=== PATIENT | female | born 1940 | race Caucasian/White ===

== ENCOUNTER → 2016-09-22 | Outpatient (CLI) | payer MEDICARE ==
--- NOTE | 2016-09-22 13:50 | MM ---
Reason for exam: follow-up at short interval from prior study. Last mammogram was performed 8 months ago. History: Patient is postmenopausal and has history of other cancer at age 74. Benign MG stereo VAD BX addl LT of the left breast, February 15, 2016. Benign MG stereo VAD BX RT of the right breast, February 15, 2016. Benign US right core biopsy of the right breast, December 18, 2006. Benign stereotactic core biopsy of the left breast, October 13, 2002. Core biopsy of the left breast. Excisional biopsy of the left breast. Excisional biopsy of the right breast. Took estrogen for 20 years beginning at age 26. Took progesterone for 20 years beginning at age 26. Physical Findings: Nurse did not find any significant physical abnormalities on exam. MG 3D Diag Mammo W/Cad SOM Bilateral CC and MLO view(s) were taken. Prior study comparison: January 26, 2016, bilateral MG 3d work up w/cad SOM. January 21, 2016, bilateral MG 3d screening mammo w/cad. The breast tissue is heterogeneously dense. This may lower the sensitivity of mammography. There is no discrete abnormality including area of concern. No significant new findings when compared with previous films. These results were verbally communicated with the patient and result sheet given to the patient on 09/22/16. ASSESSMENT: Benign, BI-RAD 2 RECOMMENDATION: Follow-up diagnostic mammogram of both breasts in 1 year.
== END | disposition home or self-care (01) ==
LOC: RADMAMWWP 12:56
PROVIDERS: ATTEND Family Medicine
DX: R92.8 Other abnormal and inconclusive findings on diagnostic imaging of breast (principal)
CPT/HCPCS: G0204; G0279

== ENCOUNTER → 2017-01-05 | Outpatient (CLI) | payer MEDICARE ==
--- NOTE | 2017-01-05 11:18 | FL ---
EXAMINATION: Upper GI with small bowel follow through DATE: 01/05/2017 CLINICAL INDICATION: 76-year-old female history of lymphoma treated in 2014. The patient had an outsi de PET/CT that showed a nonmetabolic mass at the ileocecal region, suspected stool ball. Referred for further evaluation to exclude a mass here. COMPARISON: None Total Fluoroscopy Time: 1 minute 55 seconds Total images: 47 FINDINGS: The esophagus has a normal course and caliber. No suspicious filling defect or fixed narrowing. However, there is prolonged pooling of contrast within the esophagus with blunted secondary peristals is and moderate tertiary peristaltic contractions. No hiatal hernia is identified. There is no gastroesophageal reflux identified. The stomach and duodenum are free of any persistent filling defect and demonstrate a normal mucosal p attern. Following administration of barium, serial films were carried out to 0.5 hours. Barium is seen to marie ch the colon. Loops of jejunum and ileum are compressed and examined under fluoroscopy. The small bow el loops have a normal-caliber. Mucosal pattern is within normal limits. Stool is present within the visualized colon. No suspicious findings to suggest a mass with particular attention to the ileocecal region. No intrinsic or extrinsic process is suspected. IMPRESSION: 1. Moderate esophageal dysmotility/early presbyesophagus. 2. Small bowel transit time is at the lower end of the normal range (30 minutes). 3. There is stool in the cecum. Within this limitation, there is no evident mass in the small bowel o r ileocecal region.
== END ==
LOC: RADFLMAIN 08:49
PROVIDERS: ATTEND Family Medicine
DX: K22.4 Dyskinesia of esophagus (principal)
CPT/HCPCS: 74245

== ENCOUNTER 2017-06-14 08:31 | Day surgery (SDC) | payer MEDICARE ==
[2017-06-12 10:03] VITALS: BMI 28.2
[~2017-06-14 08:31] MED LIST: LACTATED RINGERS 1,000 ML IV SCH; LIDOCAINE 1% 20 ML VIAL (10MG/ML) FOR IV START INTRADERMA PRN
[2017-06-14 08:54] VITALS: RESP 16; TEMP 97.9
[2017-06-14] MEDS ORDERED: LIDOCAINE 1% 20 ML VIAL (10MG/ML) FOR IV START INTRADERMA ONE (09:06)
[2017-06-14] MEDS ORDERED: PROPOFOL 10 MG/ML 20 ML VIAL IV ONE (09:54)
[2017-06-14] MEDS ORDERED: LIDOCAINE 1% INJ 10MG/ML (20 ML MDV) ONE (09:54)
[2017-06-14] MEDS ORDERED: fentaNYL (PF) 50 MCG/ML 2 ML AMP ONE (09:54)
--- NOTE | 2017-06-14 10:27 | P.PCN ---
Date of Procedure: 06/14/17 Procedure(s) Performed: Procedure: Esophagogastroduodenoscopy and biopsy. Preoperative diagnosis: Dysphagia and abnormal upper GI. Postoperative diagnosis: 1. Very small sliding hiatal hernia with no obvious esophagitis or complicated reflux disease. 2. Minimal antral gastritis. 3. Multiple biopsies obtained from the duodenum, antrum and esophagus. Preparation and sedation: Was provided by anesthesia. Brief clinical history: The patient is a 76-year-old female who is scheduled for this evaluation for the above reasons. The patient always considered herself a slow eater. An upper GI and small bowel follow-through performed in December 2016 in follow-up on an abnormality seen on her computed tomography scan in the small bowel/cecum showed moderate esophageal dysmotility/early presbyesophagus. The patient has no alarm symptoms including any weight loss or anemia. Procedure: With the patient on her left lateral decubitus position and after informed consent and adequate sedation, I passed the Olympus-GIF 160 video upper endoscope through the cricopharyngeus down the esophagus. GE junction was around 40-41 cm from the incisors and there was a very small sliding hiatal hernia. The esophagus did not show any obvious erosions, ulcers, strictures or Greenberg's esophagus. The endoscope was then passed into the stomach which was insufflated with air and inspected in detail including the retroflex view in the cardia. There was minimal mottling and erythema in the antrum but no ulcers or erosions. Pyloric channel, duodenal bulb, post bulbar area and descending duodenum appeared within normal limits. Because of her symptoms, I obtained biopsies from the duodenum, antrum and esophagus then the endoscope was withdrawn. The patient tolerated the procedure well. Plan: The patient was reassured. I discussed with and with her . She will follow-up with you as planned. Will await pathology results and I will be happy to see in the office of her symptoms persist or if any change.
[2017-06-14 10:34] VITALS: BP 132/65; PULSE 66
== END 2017-06-14 10:50 | disposition home or self-care (01) ==
LOC: ORWHC2ENDO 08:31
DX: K29.50 Unspecified chronic gastritis without bleeding (principal); K44.9 Diaphragmatic hernia without obstruction or gangrene; E07.9 Disorder of thyroid, unspecified; E78.5 Hyperlipidemia, unspecified; Z79.890 Hormone replacement therapy; Z79.899 Other long term (current) drug therapy
CPT/HCPCS: 88305; 43239; J2001; J3010; J2704

== ENCOUNTER → 2017-06-22 | Outpatient (CLI) | payer MEDICARE ==
--- NOTE | 2017-06-23 14:16 | ECHOF ---
Referral Reason:R01.1 Heart Murmur,M85.80 Osteopenia MEASUREMENTS -------- HEIGHT: 167.6 cm WEIGHT: 79.4 kg BP: 143/72 RVIDd: 2.9 cm (< 3.3) IVSd: 1.2 cm (0.6 - 1.1) LVIDd: 3.5 cm (3.9 - 5.3) LVPWd: 1.2 cm (0.6 - 1.1) IVSs: 1.6 cm LVIDs: 2.2 cm LVPWs: 1.6 cm LAESV Index (A-L): 21.09 ml/m Ao Diam: 2.7 cm (2.0 - 3.7) AV Cusp: 1.0 cm (1.5 - 2.6) LA Diam: 2.8 cm (2.7 - 3.8) MV EXCURSION: 10.022 mm (> 18.000) MV EF SLOPE: 69 mm/s (70 - 150) EPSS: 0.9 cm MV E Yair: 0.60 m/s MV DecT: 313 ms MV A Yair: 1.00 m/s MV E/A Ratio: 0.60 AV maxP.42 mmHg AV meanP.27 mmHg RAP: 5.00 mmHg RVSP: 20.98 mmHg FINDINGS -------- Sinus rhythm. This was a technically adequate study. The left ventricular size is normal. There is mild concentric left ventricular hypertrophy. Overa ll left ventricular systolic function is normal with, an EF between 55 - 60 %. The right ventricle is normal in size and function. Normal LA size by volume 22+/-6 ml/m2. RA appears enlarged. Aortic valve is trileaflet and is moderately thickened. There is no evidence of aortic regurgitatio n. There is mild aortic stenosis present. Peak/mean gradient across the Aortic Valve is 17.42mmHg / 10.27mmHg. The mitral valve leaflets are mildly thickened. There is trace to mild mitral regurgitation. Trace tricuspid regurgitation present. Right ventricular systolic pressure is normal at < 35 mmHg. There is no evidence of pulmonary hypertension. Trace/mild (physiologic) pulmonic regurgitation. The aortic root size is normal. Normal inferior vena cava with normal inspiratory collapse consistent with estimated right atrial pre ssure of 5 mmHg. There is no pericardial effusion. CONCLUSIONS -------- 1. Sinus rhythm. 2. This was a technically adequate study. 3. The left ventricular size is normal. 4. There is mild concentric left ventricular hypertrophy. 5. Overall left ventricular systolic function is normal with, an EF between 55 - 60 %. 6. Normal LA size by volume 22+/-6 ml/m2. 7. RA appears enlarged. 8. Aortic valve is trileaflet and is moderately thickened. 9. There is mild aortic stenosis present. 10. Peak/mean gradient across the Aortic Valve is 17.42mmHg / 10.27mmHg. 11. The mitral valve leaflets are mildly thickened. 12. There is trace to mild mitral regurgitation. 13. Trace tricuspid regurgitation present. 14. Right ventricular systolic pressure is normal at < 35 mmHg. 15. There is no evidence of pulmonary hypertension. 16. Trace/mild (physiologic) pulmonic regurgitation. 17. The aortic root size is normal. 18. There is no pericardial effusion. PRECISION DYER: Morris Stubbs RDCS
--- NOTE | 2017-06-25 15:59 | BD ---
EXAMINATION TYPE: MG DEXA axial skeleton. DATE OF EXAM: 06/22/2017 COMPARISON: NONE CLINICAL HISTORY: 76-year-old female osteopenia Height: 66 Weight: 175.8 FRAX RISK QUESTIONS: Alcohol (3 or more units per day): no Family History (Parent hip fracture): no Glucocorticoids (More than 3mos): no (Ex: prednisone, prednisolone, methylprednisolone, dexamethasone, and hydrocortisone). History of Fracture in Adulthood: no Secondary Osteoporosis: 1. Type 1 Diabetes: no 2. Hyperthyroidism: no 3. Menopause before 45: yes 4. Malnutrition: no 5. Chronic liver disease: no Rheumatoid Arthritis: no Current Tobacco Use: no RISK FACTORS HISTORY OF: Family History of Osteoporosis: no Active: yes Diet low in dairy products/other sources of calcium: yes Postmenopausal woman: hysterectomy age 26 Lost more than 2 inches in height since high school: no Frequent falls: no Adrenal Insufficiency: no MEDICATIONS: simvastatin, valacyclovir, Thyroid Medications :levothyroxine How Lon years Additional History: non-Hodgkin's lymphoma EXAM MEASUREMENTS: Bone mineral densitometry was performed using the [employer] System. Bone mineral density as measured about the Lumbar spine is: ----- L1-L4(G/cm2): 1.243 T Score Values are as follows: ----- L2: 0.3 ----- L3: 0.9 ----- L4: 0.9 ----- L1-L4: 0.5 Bone mineral density has: decreased -2.9 % since study of: 09.29.2002 Bone mineral density about the R hip (g/cm2): 0.912 Bone mineral density about the L hip (g/cm2): 0.788 T Score values are as follows: -----R Neck: -0.9 -----L Neck: -1.8 -----R Total: 0.0 -----L Total: -0.4 Bone mineral density has: decreased -9.0 % since study of: 09.29.2002 IMPRESSION: Osteopenia (T Score between -2.5 and -1). There is slightly increased risk of fracture and the patient may be considered for treatment. Re-Screen 2-5 years. NOTE: T-SCORE=SD OF THE YOUNG ADULT MEAN.
== END | disposition home or self-care (01) ==
LOC: RADBDWWP 14:18
PROVIDERS: ATTEND Family Medicine
DX: M85.80 Other specified disorders of bone density and structure, unspecified site (principal); I08.3 Combined rheumatic disorders of mitral, aortic and tricuspid valves
CPT/HCPCS: 77080; 93306

== ENCOUNTER → 2017-09-14 | Outpatient (CLI) | payer MEDICARE ==
--- NOTE | 2017-09-14 14:26 | XR ---
EXAMINATION TYPE: XR shoulder complete LT DATE OF EXAM: 09/14/2017 COMPARISON: NONE HISTORY: Pain TECHNIQUE: Shoulder examined in 3 views FINDINGS: The humeral head articulates with the glenoid. The acromio-clavicular junction is normal. No acute fractures or dislocations are evident. A follow up study can be performed 7-10 days from acute trauma for continued pain. IMPRESSION: 1. Normal Shoulder
== END | disposition home or self-care (01) ==
LOC: RADXRMAIN 13:41
PROVIDERS: ATTEND Family Medicine
DX: M25.512 Pain in left shoulder (principal)

== ENCOUNTER → 2017-11-13 | Outpatient (CLI) | payer MEDICARE ==
--- NOTE | 2017-11-13 15:18 | MM ---
Reason for exam: additional evaluation requested from prior study. Last mammogram was performed 1 year and 2 months ago. History: Patient is postmenopausal and has history of other cancer at age 74. Benign MG stereo VAD BX addl LT of the left breast, February 15, 2016. Benign MG stereo VAD BX RT of the right breast, February 15, 2016. Benign US right core biopsy of the right breast, December 18, 2006. Benign stereotactic core biopsy of the left breast, October 13, 2002. Core biopsy of the left breast. Excisional biopsy of the left breast. Excisional biopsy of the right breast. Took estrogen for 20 years beginning at age 26. Took progesterone for 20 years beginning at age 26. Physical Findings: Nurse did not find any significant physical abnormalities on exam. MG 3D Diag Mammo W/Cad SOM Bilateral CC and MLO view(s) were taken. Prior study comparison: September 22, 2016, bilateral MG 3d diag mammo w/cad SOM. January 26, 2016, bilateral MG 3d work up w/cad SOM. January 21, 2016, bilateral MG 3d screening mammo w/cad. The breast tissue is heterogeneously dense. This may lower the sensitivity of mammography. No significant new finding since prior exams. These results were verbally communicated with the patient and result sheet given to the patient on 11/13/17. ASSESSMENT: Benign, BI-RAD 2 RECOMMENDATION: Routine screening mammogram of both breasts in 1 year.
== END | disposition home or self-care (01) ==
LOC: RADMAMWWP 08:04
PROVIDERS: ATTEND Family Medicine
DX: R92.2 Inconclusive mammogram (principal)
CPT/HCPCS: 77066; G0279; 77062

== ENCOUNTER → 2018-07-31 | Outpatient (CLI) | payer MEDICARE ==
--- NOTE | 2018-07-31 11:08 | P.STRESS ---
- Stress Test Note Stress Test Results/Findings: Exam Performed: NM stress cardiolite complete Exam Date: 07/31/18 Reason for Exam: CP, SOB Height: 5 ft 6 in Weight: 77.111 kg Protocol: CARDIOLITE STRESS Stage: 2 Duration of Exercise: 5:00 Resting Heart Rate: 72 Resting Blood Pressure: 113/69 Maximum Achieved Heart Rate: 145 Maximum Achieved Blood Pressure: 153/71 85% PMHR: 122 100% PMHR: 143 METS: 7.0 Technologist Comment: Stress Test Results/Findings: Pacing 172 beats a minute, Baseline blood pressure 130/69 mmHg We central ECG shows sinus rhythm with normal cardiac and was normal ST segments Patient exercised on a Juan protocol for 5 minutes achieving a peak heart rate of 145 beats a minute normal blood pressure response to exercise occasional premature beats noted There was no definite ECG evidence for ischemia no arrhythmias noted New portion of the stress is reported separately
--- NOTE | 2018-07-31 12:41 | NM ---
EXAMINATION TYPE: NM stress cardiolite complete DATE OF EXAM: 07/31/2018 COMPARISON: NONE HISTORY: 77-year-old female with shortness of breath and chest pain TECHNIQUE: After the intravenous administration of 10.18 mCi Tc 99m Sestamibi - Rest images obtained 45 minutes post injection. The patient exercised using a NAKUL protocol and 1 minute prior to peak exercise was injected with 26.1 mCi Tc 99m Sestamibi - Stress images obtained 30 minutes post inject ion. FINDINGS: Total exercise time 5 minutes. 100% of target heart rate achieved. The technologist notes PVCs/fatigu e/lightheadedness during the exercise stress. Targeted heart rate was achieved during performance of the study. Review of stress and rest SPECT images demonstrates no distinct perfusion abnormality. Gated analysi s shows normal wall motion with an estimated left ventricular ejection fraction of 75 %. TID is calc ulated as 0.84, within normal limits. IMPRESSION: No scintigraphic evidence for reversible ischemia
== END ==
LOC: RADNMMAIN 07:45
PROVIDERS: ATTEND Family Medicine
DX: R07.9 Chest pain, unspecified (principal); R06.02 Shortness of breath; R06.00 Dyspnea, unspecified
CPT/HCPCS: 93017; 85379; 78452; A9500

== ENCOUNTER → 2019-02-04 | Outpatient (CLI) | payer MEDICARE ==
--- NOTE | 2019-02-05 10:14 | MM ---
Reason for exam: screening (asymptomatic). Last mammogram was performed 1 year and 3 months ago. History: Patient is postmenopausal and has history of other cancer at age 74. Benign MG stereo VAD BX addl LT of the left breast, February 15, 2016. Benign MG stereo VAD BX RT of the right breast, February 15, 2016. Benign US right core biopsy of the right breast, December 18, 2006. Benign stereotactic core biopsy of the left breast, October 13, 2002. Core biopsy of the left breast. Excisional biopsy of the left breast. Excisional biopsy of the right breast. Took estrogen for 20 years beginning at age 26. Took progesterone for 20 years beginning at age 26. Physical Findings: A clinical breast exam by your physician is recommended on an annual basis and results should be correlated with mammographic findings. MG 3D Screening Mammo W/Cad Bilateral CC and MLO view(s) were taken. Prior study comparison: November 13, 2017, bilateral MG 3d diag mammo w/cad SOM. September 22, 2016, bilateral MG 3d diag mammo w/cad SOM. The breast tissue is heterogeneously dense. This may lower the sensitivity of mammography. Benign appearing bilateral calcifications. Superior anterior depth right asymmetry on 3D MLO 27/57. Possible lateral correlate. Bilateral biopsy markers noted. These results were verbally communicated with the patient and result sheet given to the patient on 02/04/19. ASSESSMENT: Incomplete: need additional imaging evaluation, BI-RAD 0 RECOMMENDATION: Special view mammogram of the right breast. If lesion persists on supplemental views, image directed ultrasound is recommended. [facility] will attempt to contact patient to return for supplemental views and ultrasound if indicated.
== END | disposition home or self-care (01) ==
LOC: RADMAMWWP 14:21
PROVIDERS: ATTEND Family Medicine
DX: Z12.31 Encounter for screening mammogram for malignant neoplasm of breast (principal)
CPT/HCPCS: 77063; 77067

== ENCOUNTER → 2019-02-14 | Outpatient (CLI) | payer MEDICARE ==
--- NOTE | 2019-02-17 08:12 | MM ---
Reason for exam: additional evaluation requested from abnormal screening. Last mammogram was performed less than 1 month ago. History: Patient is postmenopausal and has history of other cancer at age 74. Benign MG stereo VAD BX addl LT of the left breast, February 15, 2016. Benign MG stereo VAD BX RT of the right breast, February 15, 2016. Benign US right core biopsy of the right breast, December 18, 2006. Benign stereotactic core biopsy of the left breast, October 13, 2002. Core biopsy of the left breast. Excisional biopsy of the left breast. Excisional biopsy of the right breast. Took estrogen for 20 years beginning at age 26. Took progesterone for 20 years beginning at age 26. Physical Findings: Nurse did not find any significant physical abnormalities on exam. MG 3D Work Up W/Cad RT Spot compression CC, spot compression MLO, and ML view(s) were taken of the right breast. Prior study comparison: February 04, 2019, bilateral MG 3d screening mammo w/cad. November 13, 2017, bilateral MG 3d diag mammo w/cad SOM. There is no discrete abnormality including area of concern. These results were verbally communicated with the patient and result sheet given to the patient on 02/14/19. ASSESSMENT: Probably benign, BI-RAD 3 RECOMMENDATION: Follow-up diagnostic mammogram of the right breast in 6 months.
== END | disposition home or self-care (01) ==
LOC: RADMAMWWP 14:00
PROVIDERS: ATTEND Family Medicine
DX: R92.8 Other abnormal and inconclusive findings on diagnostic imaging of breast (principal); C44.90 Unspecified malignant neoplasm of skin, unspecified; C81.90 Hodgkin lymphoma, unspecified, unspecified site
CPT/HCPCS: 77065; G0279; 77061

== ENCOUNTER → 2019-09-09 | Outpatient (CLI) | payer MEDICARE ==
--- NOTE | 2019-09-09 10:45 | MM ---
Reason for exam: follow-up at short interval from prior study. Last mammogram was performed 7 months ago. History: Patient is postmenopausal and has history of other cancer at age 74. Benign MG stereo VAD BX addl LT of the left breast, February 15, 2016. Benign MG stereo VAD BX RT of the right breast, February 15, 2016. Benign US right core biopsy of the right breast, December 18, 2006. Benign stereotactic core biopsy of the left breast, October 13, 2002. Core biopsy of the left breast. Excisional biopsy of the left breast. Excisional biopsy of the right breast. Took estrogen for 20 years beginning at age 26. Took progesterone for 20 years beginning at age 26. Physical Findings: Nurse did not find any significant physical abnormalities on exam. MG 3D Diag Mammo W/Cad RT CC and MLO view(s) were taken of the right breast. Prior study comparison: February 14, 2019, right breast MG 3d work up w/cad RT. February 04, 2019, bilateral MG 3d screening mammo w/cad. The breast tissue is heterogeneously dense. This may lower the sensitivity of mammography. Stable benign calcifications. There is chronic nodularity. There is no dominant lesion. No significant new findings when compared with previous films. These results were verbally communicated with the patient and result sheet given to the patient on 09/09/19. ASSESSMENT: Benign, BI-RAD 2 RECOMMENDATION: Return to routine screening mammogram schedule for both breasts. Back on schedule.
== END | disposition home or self-care (01) ==
LOC: RADMAMWWP 09:57
PROVIDERS: ATTEND Family Medicine
DX: R92.8 Other abnormal and inconclusive findings on diagnostic imaging of breast (principal)
CPT/HCPCS: 77065; G0279; 77061

== ENCOUNTER → 2021-03-17 | Outpatient (CLI) | payer MEDICARE ==
--- NOTE | 2021-03-21 14:03 | MM ---
Reason for exam: screening (asymptomatic). Last mammogram was performed 1 year and 6 months ago. History: Patient is postmenopausal and has history of other cancer at age 74. Benign MG stereo VAD BX addl LT of the left breast, February 15, 2016. Benign MG stereo VAD BX RT of the right breast, February 15, 2016. Benign US right core biopsy of the right breast, December 18, 2006. Benign stereotactic core biopsy of the left breast, October 13, 2002. Core biopsy of the left breast. Excisional biopsy of the left breast. Excisional biopsy of the right breast. Took estrogen for 20 years beginning at age 26. Took progesterone for 20 years beginning at age 26. Physical Findings: A clinical breast exam by your physician is recommended on an annual basis and results should be correlated with mammographic findings. MG 3D Screening Mammo W/Cad Bilateral CC and MLO view(s) were taken. Prior study comparison: September 09, 2019, right breast MG 3d diag mammo w/cad RT. February 14, 2019, right breast MG 3d work up w/cad RT. The breast tissue is extremely dense which could obscure a lesion on mammography. There are benign appearing round vascular calcifications bilaterally. Previous mammotome biopsy in the right breast x 2 and left breast. There is no discrete abnormality. ASSESSMENT: Benign, BI-RAD 2 RECOMMENDATION: Routine screening mammogram of both breasts in 1 year.
== END | disposition home or self-care (01) ==
LOC: RADMAMWWP 13:03
PROVIDERS: ATTEND Family Medicine
DX: Z12.31 Encounter for screening mammogram for malignant neoplasm of breast (principal); Z78.0 Asymptomatic menopausal state
CPT/HCPCS: 77063; 77067

== ENCOUNTER → 2022-04-07 | Outpatient (CLI) | payer MEDICARE ==
--- NOTE | 2022-04-10 10:05 | MM ---
Reason for Exam: Screening (asymptomatic). Last mammogram was performed 1 year(s) and 1 month(s) ago. Patient History: Menarche at age 13. First Full-Term at age 19. Left ovary removed at age 26. Right ovary removed at age 26. Hysterectomy at age 26. Postmenopausal. Estrogen for 20 years from age 26 until age 46. Progesterone for 20 years from age 26 until age 46. Core Biopsy on the Left side. Excisional Biopsy on the Right side. Excisional Biopsy on the Left side. 02/15/2016, Benign Core Biopsy on the left side. 02/15/2016, Benign Core Biopsy on the right side. 12/18/2006, Benign Core Biopsy on the right side. 10/13/2002, Benign Stereotactic Core Biopsy on the left side. Risk Values: Verónica 5 year model risk: 1.8%. NCI Lifetime model risk: 2.5%. Prior Study Comparison: 02/14/2019 Right Diagnostic Mammogram, [facility]. 09/09/2019 Right Diagnostic Mammogram, [facility]. 03/17/2021 Bilateral Screening Mammogram, [facility]. Tissue Density: The breast tissue is extremely dense which could obscure a lesion on mammography. Findings: Analyzed By CAD. Pattern appears symmetrical and stable. No significant interval change is evident. Benign vascular calcification is present on the left. Scattered benign calcifications are present. Core markers are present bilaterally. No suspicious groups of microcalcifications, spiculated or lobular masses, architectural distortion or other secondary signs of malignancy are mammographically apparent. Overall Assessment: Benign, BI-RAD 2 Management: Screening Mammogram of both breasts in 1 year. A negative mammogram report should not preclude additional follow up of suspicious palpable abnormalities. Patient should continue monthly self breast exam. A clinical breast exam by your physician is recommended on an annual basis and results should be correlated with mammographic findings. Electronically signed and approved by: Juvencio Dobson D.O. Radiologis
== END | disposition home or self-care (01) ==
LOC: RADMAMWWP 14:11
PROVIDERS: ATTEND Family Medicine
DX: Z12.31 Encounter for screening mammogram for malignant neoplasm of breast (principal); Z78.0 Asymptomatic menopausal state; Z98.890 Other specified postprocedural states
CPT/HCPCS: 77063; 77067

== ENCOUNTER → 2022-04-13 | Outpatient (CLI) | payer MEDICARE ==
--- NOTE | 2022-04-13 14:53 | CT ---
EXAMINATION TYPE: CT brain wo con DATE OF EXAM: 04/13/2022 COMPARISON: None HISTORY: headaches CT DLP: 1075.5 mGycm Automated exposure control for dose reduction was used. FINDINGS: Intracranial atherosclerotic changes are noted. Mild to moderate generalized degenerative change of t he greater frontal lobe. No midline shift or mass effect. Faint areas of low-attenuation are seen in the white matter most typical of remote white matter ische bebe. Calvarium intact. Sphenoidal changes of mild chronic sinusitis. Spina bifida occulta of the C1 physiognomist ior elements. The orbits are symmetric. Craniocervical junction is maintained. IMPRESSION: 1. Moderate degenerative change. Asymmetric frontal lobe atrophy favored over small chronic subdural hematoma or hygroma. No midline shift or mass effect.
== END | disposition home or self-care (01) ==
LOC: RADCTMAIN 14:16
PROVIDERS: ATTEND Family Medicine
DX: G31.9 Degenerative disease of nervous system, unspecified (principal); R51.9 Headache, unspecified
CPT/HCPCS: 70450

== ENCOUNTER → 2022-09-04 | Outpatient (CLI) | payer MEDICARE ==
--- NOTE | 2022-09-04 14:56 | BD ---
EXAMINATION TYPE: Axial Bone Density DATE OF EXAM: 09/04/2022 CLINICAL HISTORY: 81 years old Female. ICD-10 CODE: M85.80 Osteopenia Height: 5 ft 6 in Weight: 183 FRAX RISK QUESTIONS: Alcohol (3 or more units per day): no Family History (Parent hip fracture): no Glucocorticoids (More than 3mos): no (Ex: prednisone, prednisolone, methylprednisolone, dexamethasone, and hydrocortisone). History of Fracture in Adulthood: no Secondary Osteoporosis: 1. Type 1 Diabetes: no 2. Hyperthyroidism: no 3. Menopause before 45: yes 4. Malnutrition: no 5. Chronic liver disease: no Rheumatoid Arthritis: no Current Tobacco Use: no RISK FACTORS HISTORY OF: Surgery to Spine/Hip(right/left)/Wrist (right/left): no Family History of Osteoporosis: no Active: yes Diet low in dairy products/other sources of calcium: no Postmenopausal woman: yes Take estrogen and/or progesterone medications: none now Lost more than 2 inches in height since high school: no Frequent falls: no Poor Health: good Hyperparathyroidism: no Adrenal Insufficiency: no MEDICATIONS: Thyroid Medications: yes Which medication: levothyroxine How Long: nine years Additional Medications: levothyroxine, Simvastatin, herpes meds, Additional History: EXAM MEASUREMENTS: Bone mineral densitometry was performed using the [employer] System. Bone mineral density as measured about the Lumbar spine is: ----- L1-L4(G/cm2): 1.259 T Score Values are as follows: ----- L1: -0.2 ----- L2: 0.6 ----- L3: 1.1 ----- L4: 1.0 ----- L1-L4: 0.7 Z Score Values are as follows: ----- L1: 1.0 ----- L2: 1.8 ----- L3: 2.4 ----- L4: 2.2 ----- L1-L4: 1.9 Bone mineral density has: increased 1.3 % since study of: 2018 Bone mineral density about the R hip (g/cm2): 0.875 Bone mineral density about the L hip (g/cm2): 0.802 T Score values are as follows: -----R Neck: -1.2 -----L Neck: -1.7 -----R Total: 0.1 -----L Total: -0.7 Z Score values are as follows: -----R Neck: 0.7 -----L Neck: 0.1 -----R Total: 1.8 -----L Total: 1.0 Bone mineral density has: decreased -1.0 % since study of: 2018 FRAX%s: The graph provided illustrates a 20.3% chance for a major osteoporotic fx and a 5.0 % chance for the hips probability for fx in 10 years time. IMPRESSION: Normal (Values between +1 and -1 indicate normal bone mass). Consider repeating this study in 5 year s or sooner if there is some new clinical indication. NOTE: T-SCORE=SD OF THE YOUNG ADULT MEAN.
== END | disposition home or self-care (01) ==
LOC: RADBDWWP 13:00
PROVIDERS: ATTEND Family Medicine
DX: M85.89 Other specified disorders of bone density and structure, multiple sites (principal)
CPT/HCPCS: 77080

== ENCOUNTER 2023-03-25 11:41 | Emergency (ER) | payer MEDICARE ==
--- NOTE | 2023-03-25 12:52 | ED ---
General Adult HPI - General Chief complaint: Abdominal Pain Stated complaint: Side Pain Time Seen by Provider: 03/25/23 12:13 Source: patient Mode of arrival: ambulatory Limitations: no limitations - History of Present Illness Initial comments: Dictation was produced using [employer] dictation software. please excuse any grammatical, word or spelling errors. Chief Complaint: 82-year-old female presents with 1 day of right lower quadrant abdominal pain History of Present Illness: Patient is an 82-year-old female she has multiple comorbidities. Presents emergency Department with right lower quadrant abdominal pain. Said her pain was preceded by urinary frequency. States that the pain is constant. Worse with pressure. Denies any nausea vomiting diarrhea. No fever. Denies any flank pain. States that her urine is very cloudy. Denies any dysuria. The ROS documented in this emergency department record has been reviewed and confirmed by me. Those systems with pertinent positive or negative responses have been documented in the HPI. All other systems are other negative and/or noncontributory. - Related Data Home Medications Medication Instructions Recorded Confirmed Cholecalciferol [Vitamin D3] 1,000 unit PO DAILY 06/12/17 06/14/17 Glucosam/Wes-Msm1/C/Jasper/Bosw 1 each PO DAILY 06/12/17 06/14/17 [Glucosamine-Chondroitin Tablet] Levothyroxine Sodium [Synthroid] 50 mcg PO DAILY 06/12/17 06/14/17 Multivitamins, Thera [Multivitamin 1 tab PO DAILY 06/12/17 06/14/17 (formulary)] Simvastatin [Zocor] 20 mg PO HS 06/12/17 06/14/17 Vitamin B Complex/Folic Acid 0.4 mg PO DAILY 06/12/17 06/14/17 [B-Complex Tablet] valACYclovir HCL [Valtrex] 500 mg PO DAILY 06/12/17 06/14/17 Previous Rx's Medication Instructions Recorded Cefpodoxime Proxetil [Vantin] 200 mg PO Q12HR 10 Days #20 tab 03/25/23 Allergies Allergy/AdvReac Type Severity Reaction Status Date / Time No Known Allergies Allergy Verified 06/14/17 08:58 Review of Systems ROS Statement: Those systems with pertinent positive or pertinent negative responses have been documented in the HPI. ROS Other: All systems not noted in ROS Statement are negative. Past Medical History Past Medical History: Cancer, CVA/TIA, Hyperlipidemia, Thyroid Disorder Additional Past Medical History / Comment(s): Non- Hodgkins Lymphoma, Hx. of chest pain, states was all stress. Cardiac Cath negative for heart disease. History of Any Multi-Drug Resistant Organisms: None Reported Past Surgical History: Breast Surgery, Heart Catheterization, Hysterectomy, Orthopedic Surgery, Tonsillectomy Additional Past Surgical History / Comment(s): R Bunionectomy, lumpectomy- benign. Ear tubes. crainotomy Past Anesthesia/Blood Transfusion Reactions: No Reported Reaction Past Psychological History: No Psychological Hx Reported Past Alcohol Use History: None Reported Past Drug Use History: None Reported - Past Family History Mother Family Medical History: Congestive Heart Failure (CHF), Diabetes Mellitus Father Family Medical History: Cancer Additional Family Medical History / Comment(s): Larynx General Exam - General Exam Comments Initial Comments: PHYSICAL EXAM: General Impression: Alert and oriented x3, not in acute distress HEENT: Normocephalic atraumatic, extra-ocular movements intact, pupils equal and reactive to light bilaterally, mucous membranes moist. Cardiovascular: Heart regular rate and rhythm Chest: Able to complete full sentences, no retractions, no tachypnea Abdomen: abdomen soft, mild palpatory tenderness to the right lower quadrant, no rebound tenderness, non-distended, no organomegaly Musculoskeletal: Pulses present and equal in all extremities, no peripheral edema Motor: no focal deficits noted Neurological: CN II-XII grossly intact, no focal motor or sensory deficits noted Skin: Intact with no visualized rashes Psych: Normal affect and mood Limitations: no limitations Course Vital Signs 03/25/23 03/25/23 11:56 13:20 Temperature 98.3 F Pulse Rate 97 88 Respiratory 20 20 Rate Blood Pressure 127/71 121/57 O2 Sat by Pulse 97 96 Oximetry Medical Decision Making - Medical Decision Making Was pt. sent in by a medical professional or institution (, PA, OPTICAL MECHANIC, urgent care, hospital, or long-term...) When possible be specific @ -[No] Did you speak to anyone other than the patient for history (EMS, parent, family, police, friend...)? What history was obtained from this source @ -[No] Did you review nursing and triage notes (agree or disagree)? Why? @ -[I reviewed and agree with nursing and triage notes] Were old charts reviewed (outside hosp., previous admission, EMS record, old EKG, old radiological studies, urgent care reports/EKG's, long-term records)? Report findings @ -[No old charts were reviewed] Differential Diagnosis (chest pain, altered mental status, abdominal pain women, abdominal pain men, vaginal bleeding, musculoskeletal, weakness, fever, dyspnea, syncope, headache, dizziness, GI bleed, back pain, seizure, CVA, palpatations, mental health)? @ -Differential Abdominal Pain Women: Appendicitis, Cholecystitis, diverticulosis, ischemic bowel, pancreatitis, hepatitis, UTI, gastroenteritis, AAA, incarcerated hernia, bowel obstruction, constipation, inflammatory bowel, hepatitis, peptic ulcer disease, splenic infarction, perforated viscus, vulvitis, ovarian torsion, PID, kidney stone, placenta abruption, this is not meant to be an all-inclusive list EKG interpreted by me (3pts min.). @ -[None done] X-rays interpreted by me (1pt min.). @ -[None done] CT interpreted by me (1pt min.). @ -[None done] U/S interpreted by me (1pt. min.). @ -[None done] What testing was considered but not performed or refused? (CT, X-rays, U/S, labs)? Why? @ -[None] What meds were considered but not given or refused? Why? @ -[None] Did you discuss the management of the patient with other professionals (professionals i.e. , PA, OPTICAL MECHANIC, lab, RT, psych nurse, social sciences research scientist, protection analyst, teacher, chief resource officer, caseworker)? Give summary @ -[No] Was smoking cessation discussed for >3mins.? @ -[No] Was critical care preformed (if so, how long)? @ -[No] Were there social determinants of health that impacted care today? How? (Homelessness, low income, unemployed, alcoholism, drug addiction, transportation, low edu. Level, literacy, decrease access to med. care, long term, rehab)? @ -[No] Was there de-escalation of care discussed even if they declined (Discuss DNR or withdrawal of care, Hospice)? DNR status @ -[No] What co-morbidities impacted this encounter? (DM, HTN, Smoking, COPD, CAD, Cancer, CVA, ARF, Chemo, Hep., AIDS, mental health diagnosis, sleep apnea, morbid obesity)? @ -[None] Was patient admitted / discharged? Hospital course, mention meds given and route, prescriptions, significant lab abnormalities, going to OR and other pertinent info. @ -82-year-old female presents with urinary symptoms along with suprapubic abdominal pain that is feels like it's more on the right. Vital signs upon arrival are within acceptable limits. Patient well-appearing at bedside. Patient's click or presentation does not obviously suggest acute appendicitis. Suspicion with a component of urinary symptoms. Labs shows no leukocytosis. Metabolic panel is negative. Urinalysis shows greater than 182 white blood cells. Patient given dose of ceftriaxone she is well-appearing at bedside. Patient discharged with prescription for antibiotics. Patient agreeable with plan. Return crush discussed. Undiagnosed new problem with uncertain prognosis? @ -[No] Drug Therapy requiring intensive monitoring for toxicity (Heparin, Nitro, Insulin, Cardizem)? @ -[No] Were any procedures done? @ -[No] Diagnosis/symptom? Acute, or Chronic, or Acute on Chronic? Uncomplicated (without systemic symptoms) or Complicated (systemic symptoms)? @ -UTI, obligated by Cystitis Side effects of treatment? @ -[No] Exacerbation, Progression, or Severe Exacerbation? @ -[No] Poses a threat to life or bodily function? How? (Chest pain, USA, MA, pneumonia, PE, COPD, DKA, ARF, appy, cholecystitis, CVA, Diverticulitis, Homicidal, Suicidal, threat to staff... and all critical care pts) @ -[No] - Lab Data Result diagrams: 03/25/23 12:56 03/25/23 12:56 Lab Results 03/25/23 03/25/23 03/25/23 Range/Units 12:56 12:56 12:56 WBC 10.0 (3.8-10.6) k/uL RBC 3.95 (3.80-5.40) m/uL Hgb 12.7 (11.4-16.0) gm/dL Hct 37.9 (34.0-46.0) % MCV 96.0 (80.0-100.0) fL MCH 32.2 (25.0-35.0) pg MCHC 33.6 (31.0-37.0) g/dL RDW 14.0 (11.5-15.5) % Plt Count 224 (150-450) k/uL MPV 7.9 Neutrophils % 83 % Lymphocytes % 8 % Monocytes % 7 % Eosinophils % 0 % Basophils % 0 % Neutrophils # 8.3 H (1.3-7.7) k/uL Lymphocytes # 0.8 L (1.0-4.8) k/uL Monocytes # 0.7 (0-1.0) k/uL Eosinophils # 0.0 (0-0.7) k/uL Basophils # 0.0 (0-0.2) k/uL Sodium 138 (137-145) mmol/L Potassium 4.1 (3.5-5.1) mmol/L Chloride 101 (98-107) mmol/L Carbon Dioxide 28 (22-30) mmol/L Anion Gap 9 mmol/L BUN 20 H (7-17) mg/dL Creatinine 1.09 H (0.52-1.04) mg/dL Est GFR (CKD-EPI)AfAm 55 (>60 ml/min/1.73 sqM) Est GFR (CKD-EPI)NonAf 48 (>60 ml/min/1.73 sqM) Glucose 133 H (74-99) mg/dL Plasma Lactic Acid Won (0.7-2.0) mmol/L Calcium 9.6 (8.4-10.2) mg/dL Total Bilirubin 0.9 (0.2-1.3) mg/dL AST 31 (14-36) U/L ALT 22 (4-34) U/L Alkaline Phosphatase 78 (38-126) U/L Total Protein 7.2 (6.3-8.2) g/dL Albumin 4.1 (3.5-5.0) g/dL Lipase 49 (23-300) U/L Urine Color Yellow Urine Appearance Turbid H (Clear) Urine pH 5.5 (5.0-8.0) Ur Specific [place] 1.019 (1.001-1.035) Urine Protein 1+ H (Negative) Urine Glucose (UA) Negative (Negative) Urine Ketones Negative (Negative) Urine Blood Small H (Negative) Urine Nitrite Negative (Negative) Urine Bilirubin Negative (Negative) Urine Urobilinogen <2.0 (<2.0) mg/dL Ur Leukocyte Esterase Large H (Negative) Urine RBC 6 H (0-5) /hpf Urine WBC >182 H (0-5) /hpf Urine WBC Clumps Many H (None) /hpf Urine Bacteria Occasional H (None) /hpf Urine Mucus Few H (None) /hpf 03/25/23 Range/Units 12:56 WBC (3.8-10.6) k/uL RBC (3.80-5.40) m/uL Hgb (11.4-16.0) gm/dL Hct (34.0-46.0) % MCV (80.0-100.0) fL MCH (25.0-35.0) pg MCHC (31.0-37.0) g/dL RDW (11.5-15.5) % Plt Count (150-450) k/uL MPV Neutrophils % % Lymphocytes % % Monocytes % % Eosinophils % % Basophils % % Neutrophils # (1.3-7.7) k/uL Lymphocytes # (1.0-4.8) k/uL Monocytes # (0-1.0) k/uL Eosinophils # (0-0.7) k/uL Basophils # (0-0.2) k/uL Sodium (137-145) mmol/L Potassium (3.5-5.1) mmol/L Chloride (98-107) mmol/L Carbon Dioxide (22-30) mmol/L Anion Gap mmol/L BUN (7-17) mg/dL Creatinine (0.52-1.04) mg/dL Est GFR (CKD-EPI)AfAm (>60 ml/min/1.73 sqM) Est GFR (CKD-EPI)NonAf (>60 ml/min/1.73 sqM) Glucose (74-99) mg/dL Plasma Lactic Acid Won 1.8 (0.7-2.0) mmol/L Calcium (8.4-10.2) mg/dL Total Bilirubin (0.2-1.3) mg/dL AST (14-36) U/L ALT (4-34) U/L Alkaline Phosphatase (38-126) U/L Total Protein (6.3-8.2) g/dL Albumin (3.5-5.0) g/dL Lipase (23-300) U/L Urine Color Urine Appearance (Clear) Urine pH (5.0-8.0) Ur Specific [place] (1.001-1.035) Urine Protein (Negative) Urine Glucose (UA) (Negative) Urine Ketones (Negative) Urine Blood (Negative) Urine Nitrite (Negative) Urine Bilirubin (Negative) Urine Urobilinogen (<2.0) mg/dL Ur Leukocyte Esterase (Negative) Urine RBC (0-5) /hpf Urine WBC (0-5) /hpf Urine WBC Clumps (None) /hpf Urine Bacteria (None) /hpf Urine Mucus (None) /hpf Disposition Clinical Impression: UTI (urinary tract infection) Disposition: HOME SELF-CARE Condition: Good Instructions (If sedation given, give patient instructions): Urinary Tract Infection in Women (ED) Prescriptions: Cefpodoxime Proxetil [Vantin] 200 mg PO Q12HR 10 Days #20 tab Is patient prescribed a controlled substance at d/c from ED?: No Referrals: Lulu Aragon MD [Primary Care Provider] - 1-2 days Time of Disposition: 14:43
[2023-03-25 13:17] LABS: Basophils % (A) 0 %; Eosinophils % (A) 0 %; HCT 37.9 % (34.0-46.0); HGB 12.7 gm/dL (11.4-16.0); Lymphocytes # (A) 0.8 k/uL (1.0-4.8); Lymphocytes % (A) 8 %; MCH 32.2 pg (25.0-35.0); MCHC 33.6 g/dL (31.0-37.0); Mean Platelet Volume 7.9; Monocytes # (A) 0.7 k/uL (0-1.0); Monocytes % (A) 7 %; Neutrophils # (A) 8.3 k/uL (1.3-7.7); Neutrophils % (A) 83 %; Platelet Count 224 k/uL (150-450); RBC 3.95 m/uL (3.80-5.40)
[2023-03-25 13:27] LABS: ALT 22 U/L (4-34); AST 31 U/L (14-36); African American GFR (CKD) 55 (>60 ml/min/1.73 sqM); Albumin 4.1 g/dL (3.5-5.0); Alkaline Phosphatase 78 U/L (38-126); Blood Urea Nitrogen 20 mg/dL (7-17); Calcium 9.6 mg/dL (8.4-10.2); Carbon Dioxide 28 mmol/L (22-30); Chloride 101 mmol/L (98-107); Glucose 133 mg/dL (74-99); Lipase 49 U/L (23-300); Non-African American GFR(CKD) 48 (>60 ml/min/1.73 sqM); Potassium 4.1 mmol/L (3.5-5.1); Total Bilirubin 0.9 mg/dL (0.2-1.3); Total Protein 7.2 g/dL (6.3-8.2)
[2023-03-25 13:33] LABS: Anion Gap 9 mmol/L; Sodium 138 mmol/L (137-145)
[2023-03-25 13:44] LABS: Appearance,Urine Turbid (Clear); Bacteria,Urine Occasional /hpf; Bilirubin,Urine Negative (Negative); Blood,Urine Small (Negative); Color,Urine Yellow; Glucose,Urine (UA) Negative (Negative); Ketones,Urine Negative (Negative); Leukocyte Esterase,Urine Large (Negative); Mucus,Urine Few /hpf; Nitrite,Urine Negative (Negative); PH, Urine 5.5 (5.0-8.0); Protein,Urine 1+ (Negative); RBC,Urine 6 /hpf (0-5); Specific Gravity,Urine 1.019 (1.001-1.035); Urobilinogen,Urine <2.0 mg/dL (<2.0); WBC,Urine >182 /hpf (0-5)
[2023-03-25] MEDS ORDERED: cefTRIAXone IN SWFI 1,000 MG/10 ML SYRINGE IVP STA (14:29)
[2023-03-25 15:06] VITALS: BP 135/85; PULSE 89; RESP 18; TEMP 101
== END 2023-03-25 14:59 | disposition home or self-care (01) ==
LOC: EC 11:41
DX: N39.0 Urinary tract infection, site not specified (principal); E78.5 Hyperlipidemia, unspecified; E07.9 Disorder of thyroid, unspecified; Z79.890 Hormone replacement therapy; Z79.899 Other long term (current) drug therapy; Z86.73 Personal history of transient ischemic attack (TIA), and cerebral infarction without residual deficits
CPT/HCPCS: 36415; 80053; 83605; 83690; 85025; 81001; 87086; 99284; 96374; J0696

== ENCOUNTER → 2023-07-18 | Outpatient (CLI) | payer MEDICARE ==
--- NOTE | 2023-07-22 20:37 | MM ---
Reason for Exam: Screening (asymptomatic). Last mammogram was performed 1 year(s) and 3 month(s) ago. Patient History: Menarche at age 13. First Full-Term at age 19. Left ovary removed at age 26. Right ovary removed at age 26. Hysterectomy at age 26. Postmenopausal. Estrogen for 20 years from age 26 until age 46. Progesterone for 20 years from age 26 until age 46. Core Biopsy on the Left side. Excisional Biopsy on the Right side. Excisional Biopsy on the Left side. 02/15/2016, Benign Core Biopsy on the left side. 02/15/2016, Benign Core Biopsy on the right side. 12/18/2006, Benign Core Biopsy on the right side. 10/13/2002, Benign Stereotactic Core Biopsy on the left side. Risk Values: Verónica 5 year model risk: 1.7%. NCI Lifetime model risk: 2.3%. Prior Study Comparison: 09/09/2019 Right Diagnostic Mammogram, [facility]. 03/17/2021 Bilateral Screening Mammogram, [facility]. 04/07/2022 Bilateral MG 3D screening mammo w/cad, [facility]. Tissue Density: The breasts are heterogeneously dense, which may obscure small masses. Findings: Analyzed By CAD. 2 microclips on either side from prior biopsies. Unchanged bilateral areas of asymmetric density. There is no suspicious group of microcalcifications or new suspicious mass in either breast. Overall Assessment: Benign, BI-RAD 2 Management: Screening Mammogram of both breasts in 1 year. . Patient should continue monthly self-breast exams. A clinical breast exam by your physician is recommended on an annual basis. This exam should not preclude additional follow-up of suspicious palpable abnormalities. Note on Verónica scores and lifetime risk: 1. A Verónica score greater than 3% is considered moderate risk. If this is the case, consider specialist referral to assess eligibility for a risk reducing agent. 2. If overall lifetime risk for the development of breast cancer is 20% or higher, the patient may qualify for future screening with alternating mammogram and breast MRI. Electronically signed and approved by: Leda Milian M.D. Radiologist
== END | disposition home or self-care (01) ==
LOC: RADMAMWWP 14:39
PROVIDERS: ATTEND Family Medicine
DX: Z12.31 Encounter for screening mammogram for malignant neoplasm of breast (principal); Z78.0 Asymptomatic menopausal state
CPT/HCPCS: 77063; 77067